=== PATIENT | male | born 1955 | race Caucasian/White ===

== ENCOUNTER 2018-05-08 10:03 | Emergency (ER) | payer OTHER ==
[2018-05-08] MEDS ORDERED: DIPH/PERTUSS(ACELL)/TETANUS VAC/PF 0.5 ML SYR (>=10YO) IM ONE (10:33)
[2018-05-08] MEDS ORDERED: LIDOCAINE 1%/EPINEPHRINE INJ 20 ML VIAL INJ ONE (10:44)
--- NOTE | 2018-05-08 10:44 | ER Document Report ---
ED Wound - General Chief Complaint: Laceration Stated Complaint: LACERATION Time Seen by Provider: 05/08/18 10:33 Information source: Patient Notes: 63-year-old male who presents today after he states he was attempting to cut some wire when the razor slipped and hit him in his left AC. Patient's tetanus is not up-to-date. He denies diabetes. He denies any other symptomatology other than being very hot and a little lightheaded after the accident. He states he went to lay down on his truck. Patient denies any nausea, vomiting, chest pain, palpitations, or fevers. He denies any weakness or numbness distally to his arm or hand. TRAVEL OUTSIDE OF THE [place] IN LAST 30 DAYS: No - HPI Patient complains to provider of: Laceration Occurred: Just prior to arrival Onset/Duration: Sudden Quality of pain: Dull Severity: Mild Pain Level: Denies Context: Injury Capillary refill: < 3 seconds Sensations intact: Yes Distal pulses present: Yes Associated Symptoms: None - Related Data Allergies/Adverse Reactions: No Known Allergies Allergy (Verified 05/08/18 10:04) Past Medical History - General Information source: Patient - Social History Smoking Status: Current Every Day Smoker Cigarette use (# per day): No Chew tobacco use (# tins/day): No Smoking Education Provided: No Frequency of alcohol use: None Drug Abuse: Marijuana Family History: Reviewed & Not Pertinent Patient has suicidal ideation: No Patient has homicidal ideation: No Renal/ Medical History: Denies: Hx Peritoneal Dialysis Review of Systems - Review of Systems Neurological/Psychological: Other - no slurred speech Physical Exam - Vital signs Vitals: Temp Pulse Resp BP Pulse Ox 97.8 F 82 20 105/66 97 05/08/18 10:11 05/08/18 10:11 05/08/18 10:11 05/08/18 10:11 05/08/18 10:11 Interpretation: Normal Notes: Reviewed vital signs and nursing note as charted by RN. CONSTITUTIONAL: Alert and oriented and responds appropriately to questions. Well -appearing; well-nourished EXT: Normal range of motion of all joints; patient has a linear superficial laceration to the left AC. Is hemostatic. Neurovascularly intact distally with excellent strength, capillary refill, with sensation intact to light touch SKIN: See above NEURO: See above PSYCH: The patient's mood and manner are appropriate. Grooming and personal hygiene are appropriate. Course - Re-evaluation Re-evalutation: 05/08/18 10:43 Given the above history and physical examination we will irrigate, and exercise , and sutured appropriately. Patient is full range of motion of all extremities with excellent strength. We will update the patient's tetanus shot. Patient is not a diabetic and therefore I do not believe that the patient requires antibiotics after appropriate irrigation. - Vital Signs Vital signs: Temp Pulse Resp BP Pulse Ox 97.8 F 82 20 105/66 97 05/08/18 10:11 05/08/18 10:11 05/08/18 10:11 05/08/18 10:11 05/08/18 10:11 Procedures - Laceration/Wound Repair Left Arm Wound length (cm): 3.5 Wound's Depth, Shape: Superficial, Linear Anesthetic type: 1% Lidocaine Volume Anesthetic (mLs): 5 Wound explored: Clean Wound Debrided: Minimal Wound Repaired With: Sutures Suture Size/Type: 4:0, Prolene Number of Sutures: 7 Layer Closure?: No Post-procedure wound care: Sterile dressing applied Post-procedure NV exam normal: No Complications: No Discharge - Discharge Clinical Impression: Arm laceration Qualifiers: Encounter type: initial encounter Laterality: left Qualified Code(s): S41.112A - Laceration without foreign body of left upper arm, initial encounter Condition: Good Disposition: HOME, SELF-CARE Additional Instructions: Come back immediately with any increased pain, swelling, redness, weakness or numbness. Please apply bacitracin to the wound twice daily until healing. Please return in 7-10 days for suture removal.
[2018-05-08] MEDS ORDERED: BACITRACIN ZINC OINTMENT 15 GM TP ONE (12:01)
[2018-05-08 12:13] VITALS: BP 128/81
== END 2018-05-08 12:18 | disposition home or self-care (01) ==
LOC: ER 10:03
DX: S41.112A Laceration without foreign body of left upper arm, initial encounter (principal); W26.0XXA Contact with knife, initial encounter; F17.200 Nicotine dependence, unspecified, uncomplicated; Z23 Encounter for immunization
CPT/HCPCS: 99283; 90471; 90715; 12002; J3490